=== PATIENT | female | born 1985 | race Two or more races ===

== ENCOUNTER → 2024-06-10 | Outpatient (CLI) | payer BC, MEDICAID, SELFPAY ==
--- NOTE | 2024-06-10 14:43 | XR_ITS ---
Examination: Breast ultrasound, unilateral, left complete Date and time of exam: June 10, 2024 1455 hours INDICATIONS: Left breast lump noticed beginning 3 days ago, family history breast cancer Technique: Real-time li scale ultrasonographic imaging performed left breast including all 4 quadrants as well as nipple retroareolar and axillary region. Findings: 1:00 cyst 2 x 6 x 5 mm 5:00 cyst 2 x 3 x 3 mm Retroareolar cyst 5 x 4 x 8 mm No solid nodules IMPRESSION: BI-RADS Category 2: Benign findings
== END | disposition home or self-care (01) ==
LOC: CDIM 14:21
PROVIDERS: Referring Provider Nurse Practitioner Family; Visit Provider Nurse Practitioner Family
DX: N63.20 Unspecified lump in the left breast, unspecified quadrant (principal); Z80.3 Family history of malignant neoplasm of breast
CPT/HCPCS: 76641

== ENCOUNTER 2024-12-09 14:29 | Outpatient (AMB) | payer BC, MEDICAID, SELFPAY ==
[2024-12-09 14:55] VITALS: BP 117/79; PULSE 81; RESP 16; TEMP 36.7; O2SAT 98; BMI 26.8
--- NOTE | 2024-12-09 14:55 | AMB.GYNCLNOT ---
Vital Signs 12/09/24 14:55 Height 1.52 m Height Method Stated Weight 62.312 kg Weight Measurement Method Standing Scale BMI 26.8 BP 117/79 Blood Pressure Source Automatic Cuff Blood Pressure Location Left Upper Arm Position Sitting Respiration 16 Pulse 81 Pulse Source Monitor Temp 98.1 F Temp Source Oral Pulse Oximetry (%) 98 Oxygen Delivery Method Room Air Allergies/Home Meds Allergies & Medications Allergies sertraline Allergy (Unknown, Verified 12/09/24 14:56) THROAT SWELLING lorazepam Allergy (Verified 12/09/24 14:56) Anaphylaxis Medication Reconciliation hydroxyzine pamoate 25 mg capsule 25 mg PO QHS 07/27/21 [History Confirmed 12/09/24] cyclobenzaprine 5 mg tablet 5 mg PO TID PRN muscle spasm #30 tabs 11/21/22 [Rx Confirmed 12/09/24] ibuprofen 600 mg tablet 600 mg PO Q6H #30 tabs 11/21/22 [Rx Confirmed 12/09/24] Intake Visit Data Collection New Patient or Established: Established Patient (seen at 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 Menstrual regularity: regular Flow: normal Monthly: Yes How many days does period last: 7 Age at menarche: 12 Currently sexually active: Yes TEST SPECIALIST: Past Medical History Past Medical History: Yes Hx Neurological Disorders, Yes Hx Hypothyroidism, No Hx Cardiac Disorders, No Hx Blood Disorders, Yes Hx Gastrointestinal Disorders, No Hx Renal Disease, No Hx Diabetes Mellitus Type 1 and No Hx Diabetes Mellitus Type 2 Questionnaires Covid-19 Vaccine Questionnaire Has patient been vacinated for Covid-19 Have you been vacinated for Covid-19: Yes PHQ-9 PHQ-2 Over the last 2 weeks, how often have you been bothered by any of the following problems? 1. Little interest or pleasure in doing things: not at all 2. Feeling down, depressed, or hopeless: not at all Total score: 0 PHQ-9 3. Trouble falling or staying asleep, or sleeping too much: Not at all 4. Feeling tired or having little energy: Not at all 5. Poor appetite or overeating: Not at all 6. Feeling bad about yourself - or that you are a failure or have let yourself or your family down: Not at all 7. Trouble concentrating on things, such as reading the newspaper or watching television: Not at all 8. Moving or speaking so slowly that other people could have noticed? - Or the opposite - being so fidgety or restless that you have been moving around a lot more than usual: not at all 9. Thoughts that you would be better off or of hurting yourself in some way: Not at all Total score: 0 Source: Developed by Drs. Jean Carlos Benitez, Jania Santos, Jabier Gonzales and colleagues, with an educational roberto carlos from [employer]. Depression screen completed yes Social History Living Situation History Housing: House Tobacco History Smoking Status: Never smoker Second Hand Smoke Exposure: No Alcohol History Alcohol Intake: Current Alcohol Intake Frequency: holidays/special occasions only Domestic Abuse History Do You Feel Safe at Home: Yes History of Present Illness HPI Narrative Irregular periods every 10 to 14 days since September, abnormal uterine bleeding Jyotsna Egan is a 39-year-old female presenting with abnormal uterine bleeding. She reports that her menstrual irregularities began in September of this year. Prior to this, she had regular, predictable periods lasting 5 days. Since September, she has been experiencing menstrual cycles every 10 to 14 days, with bleeding lasting 5 to 7 days. She reports no changes in medication or other factors that might have triggered this change. She is currently taking Loloestrin, the lowest dose oral contraceptive, which she started taking due to breast cysts. She mentions a previous episode of prolonged menstrual bleeding when she was not on control, lasting 14 days for two consecutive months. At that time, she was placed on a higher dose oral contraceptive but did not tolerate it well due to side effects such as weight gain. Her last pap smear was performed this year. She reports menarche at age 12. Her last menstrual period was on November 26, 2024. 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 Exam General General Appearance: alert, in no apparent distress and healthy appearing Head Head exam: atraumatic Neck Neck exam: Present normal inspection and trachea midline Chest Chest inspection: Present normal inspection and symmetric chest wall rise External exam: Present normal external exam; Absent tenderness Neuro Neurological exam: Present oriented X3 Psych Psychiatric exam: Present normal affect and normal mood Office Procedures OBC Clinic LOC & Office Proc's Nursing/Assessment Patient Status: Established Patient OB Clinic Nursing Assessment: Medication Reconciliation, Update PMH in EMR and Vital Signs OB Clinic Coordination of Care: Complex Care and Chronic Disease 1-5, Consent,records obtained, informed consent, Education Simp Pt/Fam, Lab and Imaging orders, Results/Orders obtained and Staff clarify orders Established Patient Charge Established Patient Point Assignment: 105 Established Patient Point Charge: EP Level 3 (80-115) Assessment & Plan Diagnosis / Problem List (1) Abnormal uterine and vaginal bleeding, unspecified: Status: Acute (2) Unspecified ovarian cyst, right side: Status: Acute (3) Solitary cyst of right breast: Status: Acute Plan Abnormal Uterine Bleeding Assessment: Patient reports a recent onset of irregular menstrual cycles since September, with intervals of 10-14 days between periods and bleeding lasting 5-7 days. This represents a significant change from her previously regular cycles. Patient is currently on Loloestrin oral contraceptive pills. The irregular bleeding is likely due to breakthrough bleeding, a common side effect of long-term oral contraceptive use. Plan: - Discontinue current oral contraceptive (Loloestrin) for one month - Order pelvic ultrasound to rule out structural causes of abnormal bleeding - Order basic hormone panel - Instruct patient to restart oral contraceptive at the beginning of January, after experiencing a natural menstrual cycle - Follow up after completion of diagnostic workup Breast Cysts Assessment: Patient has a history of breast cysts, which was the initial reason for starting oral contraceptives. She is due for a follow-up breast ultrasound, as it has been more than 6 months since her last examination. Plan: - Order bilateral breast ultrasound - Review previous breast ultrasound records from Dr. Tita Valles
== END 2024-12-09 15:29 | disposition home or self-care (01) ==
LOC: HODSOBC 14:29
PROVIDERS: Supervising Provider Obstetrics & Gynecology; Visit Provider Obstetrics & Gynecology
DX: N93.9 Abnormal uterine and vaginal bleeding, unspecified (principal); N83.201 Unspecified ovarian cyst, right side; N60.01 Solitary cyst of right breast; Z88.8 Allergy status to other drugs, medicaments and biological substances
CPT/HCPCS: 99213; G0463

== ENCOUNTER → 2024-12-24 | Outpatient (CLI) | payer BC, MEDICAID, SELFPAY ==
[2024-12-24 08:58] LABS: Follicle Stimulating Hormone 5.02 mIU/mL (See Note); Thyroid Stimulating Hormone 1.30 uIU/mL (0.55-4.78)
[2024-12-28 06:40] LABS: Prolactin* 5.1 ng/mL
== END | disposition home or self-care (01) ==
PROVIDERS: PCP Nurse Practitioner Family; Referring Provider Obstetrics & Gynecology; Visit Provider Obstetrics & Gynecology
DX: N95.1 Menopausal and female climacteric states (principal); N93.9 Abnormal uterine and vaginal bleeding, unspecified; O09.00 Supervision of pregnancy with history of infertility, unspecified trimester
CPT/HCPCS: 36415; 83001; 84146; 84443

== ENCOUNTER → 2024-12-29 | Outpatient (CLI) | payer BC, SELFPAY ==
--- NOTE | 2024-12-29 09:12 | XR_ITS ---
Examination: Pelvic ultrasound, transabdominal, complete Technique: Transabdominal ultrasound of the pelvis performed using grayscale imaging Date and time of exam: December 29, 2024, 1029 hours INDICATIONS: Irregular vaginal bleeding beginning 3 months ago FINDINGS: Uterus 10.2 cm endometrial stripe 0.4 cm No uterine mass or intrauterine gestation Right ovary 3.4 cm arterial flow Left ovary 2.7 cm arterial flow pedunculated 29 x 23 x 30 mm cyst IMPRESSION: No uterine mass or intrauterine gestation Left ovarian cyst 29 x 23 x 30 mm, recommend 6-month follow-up pelvic sonography
== END | disposition home or self-care (01) ==
PROVIDERS: PCP Nurse Practitioner Family; Referring Provider Obstetrics & Gynecology; Visit Provider Obstetrics & Gynecology
DX: N83.202 Unspecified ovarian cyst, left side (principal)
CPT/HCPCS: 76856

== ENCOUNTER 2025-01-12 09:37 | Outpatient (AMB) | payer BC, SELFPAY ==
--- NOTE | 2025-01-12 09:39 | AMB.GYNCLNOT ---
Vital Signs 01/12/25 10:00 Height 1.52 m Height Method Stated Weight 62.652 kg Weight Measurement Method Standing Scale BMI 27.1 BP 112/75 Blood Pressure Source Automatic Cuff Blood Pressure Location Left Upper Arm Position Sitting Respiration 18 Pulse 90 Pulse Source Monitor Temp 97.4 F Temp Source Oral Pulse Oximetry (%) 98 Oxygen Delivery Method Room Air Allergies/Home Meds Allergies & Medications Allergies sertraline Allergy (Unknown, Verified 01/12/25 10:01) THROAT SWELLING lorazepam Allergy (Verified 01/12/25 10:01) Anaphylaxis Medication Reconciliation norgestimate-ethinyl estradiol 0.18mg/0.215mg/0.25mg-0.035mg(28)tablet (Ortho Tri-Cyclen (28)) 1 tab PO QDAY 84 days #84 tabs 01/12/25 [Rx] Intake Visit Data Collection New Patient or Established: Established Patient (seen at [facility] within 3 years) Reason for Visit:: ABNORMAL VAGINAL BLEEDING FOLLOW UP Seen by Clinical Staff ONLY (RN/MA): No Sterile Process Coordinator Required: No Do You Feel Safe at Home: Yes Authorities Contacted: N/A PCP or OBGYN visit in last 3 months: Yes Hx Now: No Are you currently on any form of Control: No Last menstrual period: 01/01/25 Pain Present Currently: No Pain Scale Used: Rocha-Huerta/Numerical Pain scale:: 0 Smoking Status Smoking Status: Never smoker Immunizations Flu Vaccine in the Last 12 Months: Yes Flu Vaccine Exclusion Criteria: Already Received 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 Menstrual regularity: regular Flow: light Monthly: Yes How many days does period last: 5 Age at menarche: 12 Currently sexually active: Yes [employer]: Past Medical History Past Medical History: Yes Hx Neurological Disorders, Yes Hx Hypothyroidism, No Hx Cardiac Disorders, No Hx Blood Disorders, Yes Hx Gastrointestinal Disorders, No Hx Renal Disease, No Hx Diabetes Mellitus Type 1 and No Hx Diabetes Mellitus Type 2 Questionnaires Covid-19 Vaccine Questionnaire Has patient been vacinated for Covid-19 Have you been vacinated for Covid-19: Yes PHQ-9 PHQ-2 Over the last 2 weeks, how often have you been bothered by any of the following problems? 1. Little interest or pleasure in doing things: not at all 2. Feeling down, depressed, or hopeless: not at all Total score: 0 PHQ-9 3. Trouble falling or staying asleep, or sleeping too much: Not at all 4. Feeling tired or having little energy: Not at all 5. Poor appetite or overeating: Not at all 6. Feeling bad about yourself - or that you are a failure or have let yourself or your family down: Not at all 7. Trouble concentrating on things, such as reading the newspaper or watching television: Not at all 8. Moving or speaking so slowly that other people could have noticed? - Or the opposite - being so fidgety or restless that you have been moving around a lot more than usual: not at all 9. Thoughts that you would be better off or of hurting yourself in some way: Not at all Total score: 0 Source: Developed by Drs. Jean Carlos Benitez, Jania Santos, Jabier Gonzales and colleagues, with an educational roberto carlos from [employer]. Depression screen completed yes Social History Living Situation History Housing: House Tobacco History Smoking Status: Never smoker Second Hand Smoke Exposure: No Alcohol History Alcohol Intake: Current Alcohol Intake Frequency: holidays/special occasions only Domestic Abuse History Do You Feel Safe at Home: Yes History of Present Illness HPI Narrative Jyotsna Egan presents for follow-up regarding menstrual irregularities and control management. The patient experienced breakthrough bleeding while on her previous control medication (lolopil) and did not get a regular period. Her last menstrual period started on the . She is currently not taking any control as she does not have any available. The patient reports no current symptoms and appears to be doing well overall. The patient was previously taking lolopil for control but ran out and is not currently taking it. ROS: Negative except as stated above, limited to [employer] and pertinent complaints. - Ultrasound: Uterus slightly enlarged, endometrial stripe 0.4 cm (normal up to 1 cm), no masses, fibroids, or tumors. Right ovary normal. Left ovary with small cyst. - Blood tests: All hormones normal. Exam General General Appearance: alert, in no apparent distress and healthy appearing Head Head exam: atraumatic Neck Neck exam: Present normal inspection and trachea midline Chest Chest inspection: Present normal inspection and symmetric chest wall rise External exam: Present normal external exam; Absent tenderness Neuro Neurological exam: Present oriented X3 Psych Psychiatric exam: Present normal affect and normal mood Office Procedures OBC Clinic LOC & Office Proc's Nursing/Assessment Patient Status: Established Patient OB Clinic Nursing Assessment: Medication Reconciliation, Update PMH in EMR and Vital Signs OB Clinic Coordination of Care: Complex Care and Chronic Disease 1-5, Consent,records obtained, informed consent, Education Simp Pt/Fam, 1 Ins Authorization, Lab and Imaging orders, Results/Orders obtained and Staff clarify orders Established Patient Charge Established Patient Point Assignment: 120 Established Patient Point Charge: EP Level 4 (120-155) Assessment & Plan Diagnosis / Problem List (1) Unspecified ovarian cyst, right side: Status: Acute (2) Abnormal uterine and vaginal bleeding, unspecified: Status: Acute Plan Breakthrough Bleeding on Control: - Patient experienced breakthrough bleeding while on Lolopil control. - Blood tests show normal hormone levels. - Current control appears inadequate for cycle control. Plan: - Switch from Lolopil to higher dose control pill. - Start new control on first day of next menstrual cycle. - Continue for 3-6 months. - Prescription sent to [facility]. Left Ovarian Cyst: - Ultrasound reveals small left ovarian cyst. - Cyst is well below the 5-6 centimeter threshold requiring surgical intervention and is expected to resolve spontaneously. Plan: - Repeat ultrasound in 6 months. - No surgical intervention needed at this time. Slightly Enlarged Uterus: - Ultrasound shows slightly enlarged uterus with endometrial stripe of 0.4 cm, which is within normal limits. - No masses, fibroids, or tumors identified. - Right ovary appears normal. Plan: - Repeat ultrasound in 6 months for monitoring.
[2025-01-12 10:00] VITALS: BP 112/75; PULSE 90; RESP 18; TEMP 36.3; O2SAT 98; BMI 27.1
== END 2025-01-12 10:13 | disposition home or self-care (01) ==
LOC: HODSOBC 09:37
PROVIDERS: PCP Nurse Practitioner Family; Referring Provider Nurse Practitioner Family; Supervising Provider Obstetrics & Gynecology; Visit Provider Obstetrics & Gynecology
DX: N83.202 Unspecified ovarian cyst, left side (principal); N93.9 Abnormal uterine and vaginal bleeding, unspecified; N85.2 Hypertrophy of uterus; Z79.3 Long term (current) use of hormonal contraceptives; Z88.8 Allergy status to other drugs, medicaments and biological substances
CPT/HCPCS: 99214; G0463